=== PATIENT | male | born 1940 | race Caucasian/White ===

== ENCOUNTER 2016-10-10 10:22 | Day surgery (SDC) | payer MEDICARE, OTHER ==
[~2016-10-10 10:22] MED LIST: NASACORT10.8 M1; TENORMIN25 M1 PO
== END 2016-10-10 16:20 ==
LOC: SRG 10:22 → SHSB 10:25 → PACU 14:19 → SHSB 15:05
PROC: 0HB1XZZ Excision of Face Skin, External Approach (ICD-10-PCS; principal; 2016-10-10)
DX: K13.4 Granuloma and granuloma-like lesions of oral mucosa (principal); D18.09 Hemangioma of other sites; E78.5 Hyperlipidemia, unspecified; M19.90 Unspecified osteoarthritis, unspecified site; N18.9 Chronic kidney disease, unspecified; K21.9 Gastro-esophageal reflux disease without esophagitis; Z79.899 Other long term (current) drug therapy; Z91.010 Allergy to peanuts; Z87.891 Personal history of nicotine dependence; Z90.49 Acquired absence of other specified parts of digestive tract; Z98.49 Cataract extraction status, unspecified eye; Z98.890 Other specified postprocedural states
CPT/HCPCS: J2250